=== PATIENT | male | born 1980 | race Caucasian/White ===

== ENCOUNTER 2023-06-16 21:13 | Emergency (ER) | payer MEDICAID ==
[~2023-06-16] VITALS: Ht 165.1 cm; Wt 90.0 kg
[~2023-06-16 21:13] MED LIST: AMOX-580 PO; APIX5TAB3 PO; DILT30TA2 PO; FURO40TA4 PO; LACT1CAP26 PO; POTA-366 PO; SILD20TA PO; SPIR25TA5 PO
[2023-06-16] MEDS ORDERED: morphine 4 MG/ML inj SYRINge IV ONE (21:30)
[2023-06-16] MEDS ORDERED: ondansetron/PF 4mg/2ml inj IV ONE (21:45)
[2023-06-16] MEDS ORDERED: iohexol 300mg/ml 100ml inj. ONE (21:46)
[2023-06-16 21:53] LABS: BILIRUBIN,URINE NEGATIVE (Neg); CLARITY,URINE CLEAR (Clear); COLOR,URINE STRAW (Yellow); GLUCOSE, URINE NEGATIVE (Neg); KETONES,URINE NEGATIVE (Neg); LEUKOCYTE ESTERASE ,URINE NEGATIVE (Neg); NITRITES, URINE NEGATIVE (Neg); OCCULT BLOOD,URINE TRACE-INTACT (Neg); PROTEIN,URINE NEGATIVE (Neg); UROBILINOGEN,URINE 0.2 E.U/dL (0.2-1.0)
[2023-06-16 22:05] LABS: BASOPHILS # (AUTO) 0.1 X10'3 (0-0.2); BASOPHILS % (AUTO) 0.5 % (0-1); EOSINOPHILS # (AUTO) 0.2 X10'3 (0-0.9); EOSINOPHILS % (AUTO) 0.9 % (0-6); HEMATOCRIT 27.8 % (42.0-52.0); HEMOGLOBIN 9.1 g/dl (14.0-17.9); LYMPHOCYTES # (AUTO) 2.8 X10'3 (1.1-4.8); LYMPHOCYTES % (AUTO) 14.1 % (21-51); MEAN CORPUSCULAR HEMOGLOBIN 30.4 PG (27.0-31.0); MEAN CORPUSCULAR HGB CONC 32.9 g/dL (33.0-36.5); MEAN CORPUSCULAR VOLUME 92.2 FL (78-98); MEAN PLATELET VOLUME 8.2 FL (7.4-10.4); MONOCYTES # (AUTO) 2.4 X10'3 (0-0.9); MONOCYTES % (AUTO) 12.2 % (2-12); NEUTROPHILS # (AUTO) 14.3 X10'3 (1.8-7.7); NEUTROPHILS % (AUTO) 72.3 % (42-75); PLATELET COUNT 301 X10'3 (140-440); RED BLOOD COUNT 3.01 X10'6 (4.70-6.10); WHITE BLOOD COUNT 19.8 X10'3 (4.5-11.0)
[2023-06-16 22:07] LABS: APTT 25 SECONDS (22-32); INR 1.3 INR; PROTHROMBIN TIME 13.7 SECONDS (9.0-12.0)
[2023-06-16 22:11] LABS: ALANINE AMINOTRANSFERASE 58 U/L (12-78); ALBUMIN 2.3 G/DL (3.4-5.0); ALBUMIN/GLOBULIN RATIO 0.5 (1.1-1.5); ALKALINE PHOSPHATASE 294 IU/L (46-116); ANION GAP 9 (8-16); ASPARTATE AMINO TRANSFERASE 54 U/L (10-37); BILIRUBIN,TOTAL 1.1 MG/DL (0.1-1.0); BLOOD UREA NITROGEN 21 MG/DL (7-18); BUN/CREATININE RATIO 21.6 (10.0-20.0); CHLORIDE 97 MMOL/L (99-107); CREATININE 0.97 MG/DL (0.60-1.10); GLUCOSE 111 MG/DL (70-104); LIPASE 47 U/L (16-77); POTASSIUM 3.6 MMOL/L (3.5-5.1); SODIUM 132 MMOL/L (135-145); TOTAL CARBON DIOXIDE 25.8 MMOL/L (24-32); TOTAL PROTEIN 6.5 G/DL (6.4-8.2); eCRCL 88 ML/MIN; eGFR 86 ML/MIN
[2023-06-16 22:13] LABS: LACTIC SEPSIS 2.3 MMOL/L (0.4-2.0)
[2023-06-16 22:14] LABS: UA COLLECTION TYPE CLN CATCH MIDSTREAM
[2023-06-16 22:15] LABS: BACTERIA,URINE NONE SEEN /HPF (Neg); RBC,URINE 0-2 /HPF (0-2); WBC,URINE 0-4 /HPF (0-4)
[2023-06-16 22:16] LABS: MUCUS STRANDS NONE SEEN /LPF (Neg); SQUAMOUS EPITHELIAL CELL,UR FEW /LPF (FEW)
[2023-06-16 23:34] VITALS: BP 106/78; PULSE 106; RESP 18; TEMP 98.6; O2SAT 96
[2023-06-16] MEDS ORDERED: piperacillin/tazo 4.5gm/100ml 100 ML IV STA (23:53)
[2023-06-17] MEDS ORDERED: piperacillin/tazo 4.5gm/100ml 100 ML IV SCH (08:00)
== END 2023-06-17 01:19 | disposition home or self-care (01) ==
LOC: ER 21:14
DX: R10.84 Generalized abdominal pain (principal); D72.829 Elevated white blood cell count, unspecified; F12.90 Cannabis use, unspecified, uncomplicated
CPT/HCPCS: 36415; 74177; 80053; 81001; 82140; 83605; 83690; 85025; 85610; 85730; 87040; 96365; 96375; 99285; J2270; J2405; J2543; J3490; Q9967; 86885; A4615

== ENCOUNTER 2023-06-19 08:56 | Emergency (ER) | payer MEDICAID ==
[~2023-06-19] VITALS: Ht 162.6 cm; Wt 95.3 kg
[2023-06-19 09:13] VITALS: BP 115/61; PULSE 120; RESP 20; TEMP 99.4; O2SAT 96
[2023-06-19 09:49] LABS: BILIRUBIN,URINE NEGATIVE (Neg); CLARITY,URINE CLEAR (Clear); COLOR,URINE YELLOW (Yellow); GLUCOSE, URINE NEGATIVE (Neg); KETONES,URINE NEGATIVE (Neg); LEUKOCYTE ESTERASE ,URINE NEGATIVE (Neg); NITRITES, URINE NEGATIVE (Neg); OCCULT BLOOD,URINE SMALL (Neg); PROTEIN,URINE NEGATIVE (Neg); UROBILINOGEN,URINE 0.2 E.U/dL (0.2-1.0)
[2023-06-19 10:03] LABS: UA COLLECTION TYPE CLN CATCH MIDSTREAM
[2023-06-19 10:06] LABS: MUCUS STRANDS FEW /LPF (Neg); SQUAMOUS EPITHELIAL CELL,UR MODERATE /LPF (FEW)
[2023-06-19 10:07] LABS: BACTERIA,URINE FEW /HPF (Neg); RBC,URINE 0-2 /HPF (0-2); SPERM FEW /HPF (NEGATIVE); WBC,URINE 0-4 /HPF (0-4)
[2023-06-19 11:32] LABS: ALANINE AMINOTRANSFERASE 38 U/L (12-78); ALBUMIN 2.2 G/DL (3.4-5.0); ALBUMIN/GLOBULIN RATIO 0.5 (1.1-1.5); ALKALINE PHOSPHATASE 272 IU/L (46-116); ANION GAP 10 (8-16); ASPARTATE AMINO TRANSFERASE 30 U/L (10-37); BASOPHILS # (AUTO) 0.1 X10'3 (0-0.2); BILIRUBIN,TOTAL 0.7 MG/DL (0.1-1.0); BLOOD UREA NITROGEN 13 MG/DL (7-18); BUN/CREATININE RATIO 13.8 (10.0-20.0); CALCIUM 8.3 MG/DL (8.5-10.1); CHLORIDE 98 MMOL/L (99-107); CREATININE 0.94 MG/DL (0.60-1.10); EOSINOPHILS # (AUTO) 0.1 X10'3 (0-0.9); GLUCOSE 135 MG/DL (70-104); HEMOGLOBIN 8.1 g/dl (14.0-17.9); POTASSIUM 3.4 MMOL/L (3.5-5.1); SODIUM 134 MMOL/L (135-145); TOTAL CARBON DIOXIDE 25.7 MMOL/L (24-32); TOTAL PROTEIN 6.5 G/DL (6.4-8.2); eCRCL 87 ML/MIN; eGFR 89 ML/MIN
[2023-06-19 11:33] LABS: BASOPHILS % (AUTO) 0.7 % (0-1); EOSINOPHILS % (AUTO) 0.8 % (0-6); HEMATOCRIT 24.7 % (42.0-52.0); LYMPHOCYTES # (AUTO) 2.3 X10'3 (1.1-4.8); LYMPHOCYTES % (AUTO) 13.2 % (21-51); MEAN CORPUSCULAR HEMOGLOBIN 30.6 PG (27.0-31.0); MEAN CORPUSCULAR HGB CONC 32.5 g/dL (33.0-36.5); MEAN CORPUSCULAR VOLUME 93.9 FL (78-98); MEAN PLATELET VOLUME 8.5 FL (7.4-10.4); MONOCYTES # (AUTO) 1.8 X10'3 (0-0.9); MONOCYTES % (AUTO) 10.3 % (2-12); NEUTROPHILS # (AUTO) 13.3 X10'3 (1.8-7.7); PLATELET COUNT 322 X10'3 (140-440); RED BLOOD COUNT 2.63 X10'6 (4.70-6.10); RED CELL DISTRIBUTION WIDTH 14.6 % (11.5-14.5); WHITE BLOOD COUNT 17.7 X10'3 (4.5-11.0)
[2023-06-19 11:41] LABS: LIPASE 46 U/L (16-77); PRO BRAIN NATRIURETIC PEPTIDE 2080 PG/ML (0-125)
[2023-06-19 13:16] LABS: BURR CELLS FEW; PLATELET ESTIMATE NORMAL; POIKILOCYTOSIS 1+; POLYCHROMASIA FEW; ROULEAUX 1+; TOTAL CELLS COUNTED 100
== END 2023-06-19 21:36 | disposition left against medical advice (07) ==
LOC: ER 08:57
DX: K91.89 Other postprocedural complications and disorders of digestive system (principal); F12.90 Cannabis use, unspecified, uncomplicated; Z79.2 Long term (current) use of antibiotics; Z79.899 Other long term (current) drug therapy; Z72.89 Other problems related to lifestyle
CPT/HCPCS: 36415; 71045; 80053; 81001; 83690; 83880; 85007; 85025; 99281; 99284

== ENCOUNTER 2023-06-24 01:17 | Inpatient (IN) | payer MEDICAID ==
[~2023-06-24] VITALS: Ht 162.6 cm; Wt 99.6 kg
[2023-06-24 02:22] LABS: URINE AMPHETAMINE SCREEN POSITIVE (Neg); URINE BARBITUATE SCREEN NEGATIVE (Neg); URINE BENZODIAZEPINES SCREEN NEGATIVE (Neg); URINE CANNABINOID SCREEN NEGATIVE (Neg); URINE COCAINE SCREEN NEGATIVE (Neg); URINE METHADONE SCREEN NEGATIVE (Neg); URINE OPIATE SCREEN NEGATIVE (Neg); URINE PHENCYCLIDINE SCREEN NEGATIVE (Neg)
[2023-06-24 02:41] LABS: BASOPHILS # (AUTO) 0.1 X10'3 (0-0.2); EOSINOPHILS # (AUTO) 0.1 X10'3 (0-0.9); EOSINOPHILS % (AUTO) 1.2 % (0-6); HEMATOCRIT 28.3 % (42.0-52.0); HEMOGLOBIN 9.2 g/dl (14.0-17.9); LYMPHOCYTES % (AUTO) 19.9 % (21-51); MEAN CORPUSCULAR HEMOGLOBIN 30.3 PG (27.0-31.0); MEAN CORPUSCULAR HGB CONC 32.7 g/dL (33.0-36.5); MEAN CORPUSCULAR VOLUME 92.7 FL (78-98); MEAN PLATELET VOLUME 8.2 FL (7.4-10.4); MONOCYTES # (AUTO) 0.9 X10'3 (0-0.9); MONOCYTES % (AUTO) 9.2 % (2-12); NEUTROPHILS # (AUTO) 6.8 X10'3 (1.8-7.7); NEUTROPHILS % (AUTO) 68.7 % (42-75); PLATELET COUNT 414 X10'3 (140-440); RED BLOOD COUNT 3.05 X10'6 (4.70-6.10); RED CELL DISTRIBUTION WIDTH 14.9 % (11.5-14.5); WHITE BLOOD COUNT 9.9 X10'3 (4.5-11.0)
[2023-06-24 03:21] LABS: ALANINE AMINOTRANSFERASE 23 U/L (12-78); ALBUMIN 2.7 G/DL (3.4-5.0); ALBUMIN/GLOBULIN RATIO 0.6 (1.1-1.5); ALKALINE PHOSPHATASE 237 IU/L (46-116); ANION GAP 12 (8-16); ASPARTATE AMINO TRANSFERASE 20 U/L (10-37); BILIRUBIN,TOTAL 0.8 MG/DL (0.1-1.0); BLOOD UREA NITROGEN 10 MG/DL (7-18); CALCIUM 8.6 MG/DL (8.5-10.1); CHLORIDE 100 MMOL/L (99-107); GLUCOSE 123 MG/DL (70-104); PRO BRAIN NATRIURETIC PEPTIDE 1055 PG/ML (0-125); SODIUM 138 MMOL/L (135-145); TOTAL CARBON DIOXIDE 25.6 MMOL/L (24-32); TOTAL PROTEIN 7.1 G/DL (6.4-8.2); eCRCL 82 ML/MIN; eGFR 83 ML/MIN
[2023-06-24 03:26] LABS: POTASSIUM 2.7 MMOL/L (3.5-5.1)
[2023-06-24] MEDS ORDERED: potassium Cl 20 mEq SR tablet PO STA ×2 (03:30→03:37)
[2023-06-24] MEDS ORDERED: magnesium 2GM in 50ml NS 50 ML IV ONE (03:40)
[2023-06-24] MEDS: potassium CL 10mEq/100ml bag 100 ML IV SCH ×3 (03:56→08:27)
[2023-06-24] MEDS ORDERED: potassium Cl 20 mEq SR tablet PO PRN (04:45)
[2023-06-24] MEDS ORDERED: acetaminophen 325mg tablet PO PRN (04:45)
[2023-06-24] MEDS ORDERED: magnesium Cl slow-release 64mg tablet PO PRN (04:45)
[2023-06-24] MEDS ORDERED: ondansetron/PF 4mg/2ml inj IV PRN (04:45)
[2023-06-24] MEDS ORDERED: magnesium 4gm in 100ml NS 100 ML IV PRN (04:45)
[2023-06-24] MEDS ORDERED: magnesium 2GM in 50ml NS 50 ML IV PRN (04:45)
[2023-06-24] MEDS ORDERED: potassium Cl 40MEQ/1/2NS 520ml 520 ML IV PRN (04:45)
[2023-06-24] MEDS: furosemide 10 MG/1 ML 10ml inj IV ONE ×2 (06:24→07:10)
[2023-06-24] MEDS: K and/or MAG REPLACEMENT MC SCH ×2 (07:36→20:00)
[2023-06-24] MEDS ORDERED: furosemide 40mg/4ml inj IV SCH (08:00)
[2023-06-24] MEDS ORDERED: furosemide 40mg/4ml inj IV ONE (08:00)
[2023-06-24 09:24] LABS: MAGNESIUM 2.1 MG/DL (1.5-2.4); POTASSIUM 3.1 MMOL/L (3.5-5.1)
[2023-06-24] MEDS ORDERED: CefTRIAXone/D5W-Rocephin 1gm 50 ML IV SCH (11:35)
[2023-06-24] MEDS: vancomycin/NS 1 GM ADD-VANTAGE 250 ML IV SCH ×2 (12:18→20:00)
[2023-06-24] MEDS ORDERED: diltiazem 30mg tablet PO SCH (14:00)
[2023-06-24 14:50] LABS: BILIRUBIN,URINE NEGATIVE (Neg); CLARITY,URINE CLEAR (Clear); COLOR,URINE STRAW (Yellow); GLUCOSE, URINE NEGATIVE (Neg); KETONES,URINE NEGATIVE (Neg); LEUKOCYTE ESTERASE ,URINE NEGATIVE (Neg); NITRITES, URINE NEGATIVE (Neg); OCCULT BLOOD,URINE NEGATIVE (Neg); PH,URINE 6.5 (4.8-8.0); PROTEIN,URINE NEGATIVE (Neg); UROBILINOGEN,URINE 0.2 E.U/dL (0.2-1.0)
[2023-06-24 14:59] LABS: UA COLLECTION TYPE NON-SPECIFIED
[2023-06-24] MEDS: furosemide 40mg/4ml inj IV SCH ×3 (14:59→21:00)
[2023-06-24] MEDS: potassium Cl 20 mEq SR tablet PO PRN ×2 (16:24→22:32)
[2023-06-24 17:25] VITALS: BP 101/66; PULSE 120; RESP 18; TEMP 97.8; O2SAT 91
[2023-06-24 18:00] VITALS: BP 110/76; PULSE 120; RESP 19; TEMP 98.2; O2SAT 93
[2023-06-24 20:00] VITALS: RESP 19; O2SAT 93
[2023-06-24] MEDS: apixaban 5mg tablet PO SCH (20:00)
[2023-06-24] MEDS: diltiazem 30mg tablet PO SCH (20:00)
[2023-06-24] MEDS ORDERED: apixaban 5mg tablet PO SCH (20:00)
[2023-06-24 22:00] VITALS: BP 123/74; PULSE 121; RESP 17; TEMP 97.3; O2SAT 100
[2023-06-24] MEDS: morphine 2 MG/ML inj. syringe IV PRN (22:32)
[2023-06-25] VITALS (10 sets, daily range): BP systolic 93–147; BP diastolic 58–89; PULSE 103–120; RESP 14–26; TEMP 97.5–98.3; O2SAT 95–98
[2023-06-25] MEDS: diltiazem 30mg tablet PO SCH ×4 (02:35→20:18)
[2023-06-25] MEDS: vancomycin/NS 1 GM ADD-VANTAGE 250 ML IV SCH (05:35)
[2023-06-25 07:45] LABS: BASOPHILS # (AUTO) 0.1 X10'3 (0-0.2); BASOPHILS % (AUTO) 1.2 % (0-1); EOSINOPHILS # (AUTO) 0.2 X10'3 (0-0.9); HEMATOCRIT 26.6 % (42.0-52.0); HEMOGLOBIN 8.6 g/dl (14.0-17.9); LYMPHOCYTES # (AUTO) 1.8 X10'3 (1.1-4.8); LYMPHOCYTES % (AUTO) 22.9 % (21-51); MEAN CORPUSCULAR HEMOGLOBIN 30.2 PG (27.0-31.0); MEAN CORPUSCULAR HGB CONC 32.4 g/dL (33.0-36.5); MEAN CORPUSCULAR VOLUME 93.1 FL (78-98); MONOCYTES # (AUTO) 0.8 X10'3 (0-0.9); MONOCYTES % (AUTO) 9.6 % (2-12); NEUTROPHILS % (AUTO) 63.3 % (42-75); PLATELET COUNT 405 X10'3 (140-440); RED BLOOD COUNT 2.86 X10'6 (4.70-6.10); RED CELL DISTRIBUTION WIDTH 15.3 % (11.5-14.5)
[2023-06-25 07:53] LABS: ALBUMIN 2.3 G/DL (3.4-5.0); ANION GAP 10 (8-16); BLOOD UREA NITROGEN 10 MG/DL (7-18); BUN/CREATININE RATIO 9.9 (10.0-20.0); CALCIUM 8.1 MG/DL (8.5-10.1); CHLORIDE 101 MMOL/L (99-107); CREATININE 1.01 MG/DL (0.60-1.10); GLUCOSE 124 MG/DL (70-104); POTASSIUM 3.3 MMOL/L (3.5-5.1); SODIUM 136 MMOL/L (135-145); TOTAL CARBON DIOXIDE 24.7 MMOL/L (24-32); eCRCL 81 ML/MIN; eGFR 82 ML/MIN
[2023-06-25] MEDS: K and/or MAG REPLACEMENT MC SCH ×2 (08:00→20:00)
[2023-06-25] MEDS: furosemide 40mg/4ml inj IV SCH ×3 (08:00→20:23)
[2023-06-25] MEDS: apixaban 5mg tablet PO SCH ×2 (09:48→20:19)
[2023-06-25] MEDS: potassium Cl 20 mEq SR tablet PO PRN ×3 (09:48→20:19)
[2023-06-25] MEDS ORDERED: pneumococcal 23-VAL P-sac vacc 25 mcg/0.5ml vial IMVAC ONE (10:00)
[2023-06-25] MEDS: CefTRIAXone 2gm/D5W 50ml BAG 50 ML IV SCH (10:58)
[2023-06-25] MEDS ORDERED: VANCOMYCIN LEVEL IV ONE (11:30)
[2023-06-25] MEDS: spironolactone 25 MG tablet PO SCH (14:44)
[2023-06-26] VITALS (7 sets, daily range): BP systolic 103–123; BP diastolic 59–79; PULSE 61–120; RESP 16–20; TEMP 97.3–97.9; O2SAT 92–99
[2023-06-26] MEDS: morphine 2 MG/ML inj. syringe IV PRN ×4 (00:18→21:51)
[2023-06-26] MEDS: diltiazem 30mg tablet PO SCH ×4 (02:03→20:40)
[2023-06-26] MEDS: K and/or MAG REPLACEMENT MC SCH ×3 (08:00→20:00)
[2023-06-26 08:04] LABS: ALBUMIN 2.3 G/DL (3.4-5.0); ANION GAP 8 (8-16); BLOOD UREA NITROGEN 9 MG/DL (7-18); BUN/CREATININE RATIO 9.9 (10.0-20.0); CALCIUM 8.2 MG/DL (8.5-10.1); CHLORIDE 102 MMOL/L (99-107); CREATININE 0.91 MG/DL (0.60-1.10); GLUCOSE 118 MG/DL (70-104); MAGNESIUM 1.9 MG/DL (1.5-2.4); POTASSIUM 3.2 MMOL/L (3.5-5.1); SODIUM 135 MMOL/L (135-145); TOTAL CARBON DIOXIDE 24.7 MMOL/L (24-32); eCRCL 90 ML/MIN; eGFR > 90 ML/MIN
[2023-06-26 08:08] LABS: BASOPHILS # (AUTO) 0.1 X10'3 (0-0.2); EOSINOPHILS # (AUTO) 0.2 X10'3 (0-0.9); HEMOGLOBIN 8.6 g/dl (14.0-17.9); LYMPHOCYTES # (AUTO) 1.8 X10'3 (1.1-4.8)
[2023-06-26 08:10] LABS: APTT 30 SECONDS (22-32); INR 1.3 INR; PROTHROMBIN TIME 13.9 SECONDS (9.0-12.0)
[2023-06-26 08:12] LABS: BASOPHILS % (AUTO) 1.2 % (0-1); EOSINOPHILS % (AUTO) 2.5 % (0-6); HEMATOCRIT 26.4 % (42.0-52.0); LYMPHOCYTES % (AUTO) 22.2 % (21-51); MEAN CORPUSCULAR HEMOGLOBIN 29.8 PG (27.0-31.0); MEAN CORPUSCULAR HGB CONC 32.6 g/dL (33.0-36.5); MEAN CORPUSCULAR VOLUME 91.2 FL (78-98); MONOCYTES % (AUTO) 12.4 % (2-12); NEUTROPHILS % (AUTO) 61.7 % (42-75); PLATELET COUNT 418 X10'3 (140-440); RED BLOOD COUNT 2.89 X10'6 (4.70-6.10); RED CELL DISTRIBUTION WIDTH 15.3 % (11.5-14.5); WHITE BLOOD COUNT 8.1 X10'3 (4.5-11.0)
[2023-06-26] MEDS: CefTRIAXone 2gm/D5W 50ml BAG 50 ML IV SCH (09:38)
[2023-06-26] MEDS: apixaban 5mg tablet PO SCH ×2 (09:38→20:40)
[2023-06-26] MEDS: spironolactone 25 MG tablet PO SCH (09:38)
[2023-06-26] MEDS: furosemide 40mg/4ml inj IV SCH ×3 (09:39→20:39)
[2023-06-26] MEDS ORDERED: pneumococcal 23-VAL P-sac vacc 25 mcg/0.5ml vial IMVAC ONE (10:00)
[2023-06-26] MEDS: potassium Cl 20 mEq SR tablet PO PRN ×3 (11:10→20:40)
[2023-06-26 11:28] LABS: THYROID STIMULATING HORMONE 4.07 ulU/ml (0.34-4.50)
[2023-06-26 11:29] LABS: FREE T4 (FREE THYROXINE) 1.14 NG/DL (0.73-1.40)
[2023-06-26] MEDS ORDERED: magnesium Cl slow-release 64mg tablet PO PRN (19:00)
[2023-06-26] MEDS ORDERED: magnesium 2GM in 50ml NS 50 ML IV PRN (19:00)
[2023-06-26] MEDS ORDERED: potassium Cl 40MEQ/1/2NS 520ml 520 ML IV PRN (19:00)
[2023-06-26] MEDS ORDERED: potassium Cl 20 mEq SR tablet PO PRN ×2 (19:00)
[2023-06-26] MEDS ORDERED: magnesium 4gm in 100ml NS 100 ML IV PRN (19:00)
[2023-06-26] MEDS ORDERED: metoprolol succinate 25mg (24-HOUR) SR. Tablet PO SCH (20:00)
[2023-06-27 02:00] VITALS: BP 108/68; PULSE 106; RESP 18; TEMP 97.1; O2SAT 97
[2023-06-27] MEDS: diltiazem 30mg tablet PO SCH ×2 (02:00→08:00)
[2023-06-27] MEDS: morphine 2 MG/ML inj. syringe IV PRN (06:08)
[2023-06-27 06:28] LABS: ALBUMIN 2.7 G/DL (3.4-5.0); ANION GAP 12 (8-16); BLOOD UREA NITROGEN 10 MG/DL (7-18); BUN/CREATININE RATIO 10.9 (10.0-20.0); CALCIUM 8.2 MG/DL (8.5-10.1); CHLORIDE 100 MMOL/L (99-107); CREATININE 0.92 MG/DL (0.60-1.10); GLUCOSE 96 MG/DL (70-104); MAGNESIUM 1.9 MG/DL (1.5-2.4); POTASSIUM 3.6 MMOL/L (3.5-5.1); SODIUM 136 MMOL/L (135-145); TOTAL CARBON DIOXIDE 24.4 MMOL/L (24-32); eCRCL 89 ML/MIN; eGFR > 90 ML/MIN
[2023-06-27 06:30] LABS: BASOPHILS # (AUTO) 0.1 X10'3 (0-0.2); BASOPHILS % (AUTO) 1.1 % (0-1); EOSINOPHILS # (AUTO) 0.2 X10'3 (0-0.9); EOSINOPHILS % (AUTO) 2.1 % (0-6); HEMATOCRIT 28.2 % (42.0-52.0); HEMOGLOBIN 9.1 g/dl (14.0-17.9); LYMPHOCYTES % (AUTO) 22.2 % (21-51); MEAN CORPUSCULAR HEMOGLOBIN 29.5 PG (27.0-31.0); MEAN CORPUSCULAR HGB CONC 32.3 g/dL (33.0-36.5); MEAN CORPUSCULAR VOLUME 91.4 FL (78-98); MEAN PLATELET VOLUME 7.8 FL (7.4-10.4); MONOCYTES % (AUTO) 11.1 % (2-12); NEUTROPHILS # (AUTO) 5.7 X10'3 (1.8-7.7); NEUTROPHILS % (AUTO) 63.5 % (42-75); PLATELET COUNT 480 X10'3 (140-440); RED BLOOD COUNT 3.08 X10'6 (4.70-6.10); RED CELL DISTRIBUTION WIDTH 15.1 % (11.5-14.5); WHITE BLOOD COUNT 8.9 X10'3 (4.5-11.0)
[2023-06-27] MEDS: furosemide 40mg/4ml inj IV SCH (08:00)
[2023-06-27] MEDS: spironolactone 25 MG tablet PO SCH (08:00)
[2023-06-27] MEDS: K and/or MAG REPLACEMENT MC SCH ×2 (08:00)
[2023-06-27] MEDS: apixaban 5mg tablet PO SCH (08:02)
[2023-06-27] MEDS: CefTRIAXone 2gm/D5W 50ml BAG 50 ML IV SCH (08:02)
[2023-06-27] MEDS ORDERED: FURO40TA4 PO ×3 (10:56→11:03)
[2023-06-27] MEDS ORDERED: METO-395 PO (10:56)
[2023-06-27] MEDS ORDERED: LEVO-65 PO ×2 (10:58)
[2023-06-27 11:00] VITALS: BP 100/72; PULSE 111; RESP 14; TEMP 97.5; O2SAT 99
[2023-06-27 15:42] LABS: HBSAG SCREEN Negative (Negative); HEP A AB, IGM Negative (Negative); HEP B CORE AB, IGM Negative (Negative); HEPATITIS C VIRUS ANTIBODY Non Reactive (Non Reactive)
== END 2023-06-27 12:35 | disposition home or self-care (01) | DRG 194 ==
LOC: ER 01:18 → ED HOLD 04:48 → PCU 3S 17:22
PROVIDERS: ADMIT Internal Medicine; ATTEND Internal Medicine
DX: I50.33 Acute on chronic diastolic (congestive) heart failure (principal); I27.81 Cor pulmonale (chronic); L03.115 Cellulitis of right lower limb; I48.92 Unspecified atrial flutter; L03.116 Cellulitis of left lower limb; K74.60 Unspecified cirrhosis of liver; I48.91 Unspecified atrial fibrillation; F19.10 Other psychoactive substance abuse, uncomplicated; E87.6 Hypokalemia; Z79.899 Other long term (current) drug therapy; Z90.49 Acquired absence of other specified parts of digestive tract; Z79.01 Long term (current) use of anticoagulants
CPT/HCPCS: 36415; 71045; 76700; 80048; 80053; 80202; 80305; 81003; 83605; 83735; 83880; 84132; 84439; 84443; 84484; 85025; 85610; 85730; 86705; 86709; 86803; 87040; 87077; 87081; 87186; 87340; 87522; 90732; 93005; 99285; G0378; J0696; J1940; J2270; J3370; J3475; J3480; J7030; J7040; J7050